=== PATIENT | female | born 1970 | race Caucasian/White ===

== ENCOUNTER 2018-01-07 19:09 | Emergency (ER) | payer OTHER ==
[~2018-01-07] VITALS: Ht 152.4 cm; Wt 70.8 kg
[~2018-01-07 19:09] MED LIST: BIAXIN500 MG; METRONIDAZOLE500 MG
[2018-01-08] MEDS ORDERED: IRON1TAB4 PO (00:50)
[2018-01-08] MEDS ORDERED: TESSALON PERLE100 M1 PO (00:50)
[2018-01-08] MEDS ORDERED: MUCINEX DM ER1 EAC1 PO (00:50)
[2018-01-08] MEDS ORDERED: AIRBORNE EFFER1 EACH PO (00:50)
== END 2018-01-08 00:55 | disposition home or self-care (01) ==
LOC: ER 19:09
DX: B34.9 Viral infection, unspecified (principal); D64.89 Other specified anemias

== ENCOUNTER 2018-08-15 13:35 | Outpatient (CLI) | payer OTHER ==
[~2018-08-15 13:35] MED LIST changes: +AIRBORNE EFFER1 EACH PO; +IRON1TAB4 PO; +MUCINEX DM ER1 EAC1 PO; +TESSALON PERLE100 M1 PO
== END 2018-08-15 13:37 | disposition home or self-care (01) ==
LOC: SONOGRAMA 13:35
DX: N60.11 Diffuse cystic mastopathy of right breast (principal); N60.12 Diffuse cystic mastopathy of left breast

== ENCOUNTER 2018-08-19 13:52 | Outpatient (CLI) | payer OTHER | END 2018-08-19 13:57 | disposition home or self-care (01) | LOC: SONOGRAMA 13:52 | DX: N60.11 Diffuse cystic mastopathy of right breast (principal); N60.12 Diffuse cystic mastopathy of left breast ==

== ENCOUNTER 2019-03-03 17:48 | Emergency (ER) | payer OTHER ==
[~2019-03-03] VITALS: Ht 152.4 cm; Wt 68.5 kg
[2019-03-03] MEDS ORDERED: [UNRECOGNIZED DRUG - OTHER] (18:05)
[2019-03-03] MEDS ORDERED: DUI500 PO (18:54)
[2019-03-03] MEDS ORDERED: DELSYM30 MG/5 M1 PO (18:55)
== END 2019-03-03 19:00 | disposition home or self-care (01) ==
LOC: ER 17:48
DX: H66.91 Otitis media, unspecified, right ear (principal)

== ENCOUNTER 2019-09-27 14:35 | Emergency (ER) | payer OTHER ==
[~2019-09-27] VITALS: Ht 152.4 cm; Wt 70.3 kg
[~2019-09-27 14:35] MED LIST changes: +DELSYM30 MG/5 M1 PO; +DUI500 PO; +[UNRECOGNIZED DRUG - OTHER]
[2019-09-27] MEDS ORDERED: IBU800 MG (14:52)
[2019-09-27] MEDS ORDERED: CLEOCIN HCL150 MG (14:53)
== END 2019-09-27 18:32 | disposition home or self-care (01) ==
LOC: ER 14:35
DX: K08.89 Other specified disorders of teeth and supporting structures (principal); Z98.818 Other dental procedure status

== ENCOUNTER 2019-12-12 13:10 | Outpatient (CLI) | payer OTHER ==
[~2019-12-12 13:10] MED LIST changes: +CLEOCIN HCL150 MG; +IBU800 MG
== END 2019-12-12 13:24 | disposition home or self-care (01) ==
LOC: MAMO-SONO 13:10
PROVIDERS: ATTEND Surgery
DX: Z12.31 Encounter for screening mammogram for malignant neoplasm of breast (principal); N60.11 Diffuse cystic mastopathy of right breast; N60.12 Diffuse cystic mastopathy of left breast

== ENCOUNTER 2019-12-22 13:15 | Outpatient (CLI) | payer OTHER | END 2019-12-22 13:31 | disposition home or self-care (01) | LOC: SONOGRAMA 13:15 | PROVIDERS: ATTEND Surgery | DX: N60.11 Diffuse cystic mastopathy of right breast (principal); N60.12 Diffuse cystic mastopathy of left breast ==

== ENCOUNTER 2020-02-19 15:38 | Emergency (ER) | payer OTHER ==
[~2020-02-19] VITALS: Ht 154.9 cm; Wt 69.9 kg
[2020-02-19] MEDS ORDERED: TOPROL XL25 M1 (16:54)
[2020-02-19] MEDS ORDERED: AIRBORNE EFFER1 EAC1 PO (21:47)
[2020-02-19] MEDS ORDERED: ALPRAZOLAM XR1 MG PO (21:47)
[2020-02-19] MEDS ORDERED: CLONAZEPAM1 MG PO (21:47)
[2020-02-19] MEDS ORDERED: MUCINEX DM ER1 EAC1 PO (21:47)
[2020-02-19] MEDS ORDERED: OSEL75CA PO (21:47)
[2020-02-19] MEDS ORDERED: KETO10TA2 PO (21:47)
== END 2020-02-19 22:10 | disposition home or self-care (01) ==
LOC: ER 15:38
DX: R00.2 Palpitations (principal); R42 Dizziness and giddiness; F41.0 Panic disorder [episodic paroxysmal anxiety]; J11.1 Influenza due to unidentified influenza virus with other respiratory manifestations; Z03.818 Encounter for observation for suspected exposure to other biological agents ruled out

== ENCOUNTER 2021-06-06 13:23 | Emergency (ER) | payer OTHER ==
[~2021-06-06] VITALS: Ht 149.9 cm; Wt 61.2 kg
[~2021-06-06 13:23] MED LIST changes: +AIRBORNE EFFER1 EAC1 PO; +ALPRAZOLAM XR1 MG PO; +CLONAZEPAM1 MG PO; +KETO10TA2 PO; +OSEL75CA PO; +TOPROL XL25 M1
[2021-06-06] MEDS ORDERED: KETO10TA2 PO (15:10)
[2021-06-06] MEDS ORDERED: NORFLEX100MG PO (15:10)
== END 2021-06-06 15:27 | disposition home or self-care (01) ==
LOC: ER 13:23
DX: S30.0XXA Contusion of lower back and pelvis, initial encounter (principal); W18.09XA Striking against other object with subsequent fall, initial encounter; Y93.89 Activity, other specified; Y92.018 Other place in single-family (private) house as the place of occurrence of the external cause; Y99.8 Other external cause status

== ENCOUNTER 2021-11-28 11:05 | Outpatient (CLI) | payer OTHER ==
[~2021-11-28 11:05] MED LIST changes: +NORFLEX100MG PO
== END 2021-11-28 11:12 | disposition home or self-care (01) ==
LOC: SONOGRAMA 11:05
PROVIDERS: ATTEND Surgery
DX: N60.11 Diffuse cystic mastopathy of right breast (principal); N60.12 Diffuse cystic mastopathy of left breast